=== PATIENT | female | born 1995 | race Caucasian/White ===

== ENCOUNTER 2018-12-07 16:38 | Emergency (ER) | payer BC, SELFPAY ==
[2018-12-07 16:40] VITALS: BP 108/57; PULSE 82; RESP 16; TEMP 37.5; O2SAT 100
--- NOTE | 2018-12-07 16:40 | DI.RAD_ITS ---
SYMPTOM/DIAGNOSIS: PAIN, S/P FALL LEFT SHOULDER: Multiple views. No acute fracture or dislocation is present.
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
--- NOTE | 2018-12-07 17:20 | DI.RAD_ITS ---
SYMPTOM/DIAGNOSIS: PAIN, S/P FALL LEFT HAND: Three views. No acute fracture or dislocation is present.
--- NOTE | 2018-12-07 17:36 | DI.VRAD_ITS ---
EXAM: XR Left Shoulder EXAM DATE/TIME: 12/07/2018 4:40 PM CLINICAL HISTORY: 23 years old, female; Other: Pain, S/P fall TECHNIQUE: Imaging protocol: XR Left shoulder. Views: 2 or more views. COMPARISON: No relevant prior studies available. FINDINGS: Bones/joints: Normal. Soft tissues: Normal. IMPRESSION: No acute findings. Dictated and Authenticated by: Tika Dodson MD. Ordering:CHRIS Bailey MD
--- NOTE | 2018-12-07 17:37 | DI.VRAD_ITS ---
EXAM: XR Left Hand EXAM DATE/TIME: 12/07/2018 4:40 PM CLINICAL HISTORY: 23 years old, female; Other: Pain, S/P fall TECHNIQUE: Imaging protocol: XR Left hand. Views: 3 or more views. COMPARISON: No relevant prior studies available. FINDINGS: Bones/joints: Unremarkable. Soft tissues: Unremarkable. IMPRESSION: No acute bony injury. Dictated and Authenticated by: Tika Dodson MD. Ordering:CHRIS Bailey MD
[2018-12-07 18:13] VITALS: BP 123/75; PULSE 78; RESP 17; O2SAT 99
== END 2018-12-07 16:40 | disposition home or self-care (01) ==
PROVIDERS: Emergency Provider Emergency Medicine
DX: S40.012A Contusion of left shoulder, initial encounter (principal); S60.222A Contusion of left hand, initial encounter; V17.0XXA Pedal cycle driver injured in collision with fixed or stationary object in nontraffic accident, initial encounter
CPT/HCPCS: 99284; 73030; 73130; 99282